=== PATIENT | female | born 1955 | race Caucasian/White ===

== ENCOUNTER 2024-09-08 08:58 | Observation (INO) | payer OTHER ==
[2024-09-08 10:24] LABS: ABSOLUTE IMMATURE GRANULOCYTES 0.11 x10^3/uL (0.0-0.031); BASOPHILS # 0.07 x10^3/uL (0.01-0.08); EOSINOPHIL % 1.3 % (0.7-5.8); EOSINOPHILS # 0.15 x10^3/uL (0.04-0.36); HEMATOCRIT 44.2 % (34.1-44.9); HEMOGLOBIN 15.1 g/dL (11.2-15.7); MCHC 34.2 g/dl (32.2-35.5); MEAN CELL VOLUME 98.4 fl (79.4-94.8); MEAN PLT VOLUME 9.8 fl (9.4-12.3); MONOCYTE # 0.83 x10^3/uL (0.24-0.86); MONOCYTE % 7.2 % (4.7-12.5); PLATELET COUNT 234 x10^3/uL (182-369)
[2024-09-08 10:46] LABS: CHLORIDE 92 mmol/L (98-107); SODIUM 133 mmol/L (136-145)
[2024-09-08 10:48] LABS: POTASSIUM 2.4 mmol/L (3.5-5.1)
[2024-09-08 10:50] LABS: ALBUMIN 3.8 g/dl (3.4-5.0); ANION GAP 13 mmol/L (4-13); BLOOD UREA NITROGEN 11.2 mg/dL (7-18); CALCIUM 8.8 mg/dL (8.5-10.1); CO2 28 mmol/L (21-32); GLUCOSE,RANDOM 138 mg/dL (74-106); MAGNESIUM 1.4 mg/dL (1.8-2.4)
[2024-09-08 10:53] LABS: PHOSPHOROUS 2.8 mg/dL (2.5-4.9); SGOT/AST 68 U/L (15-37); SGPT/ALT 60 U/L (13-61)
[2024-09-08 10:55] LABS: BILIRUBIN,TOTAL 1.9 mg/dL (0.2-1); TOT PROT 7.1 g/dl (6.4-8.2)
[2024-09-08 10:56] LABS: ALK PHOS 155 U/L (45-117)
[2024-09-08] MEDS ORDERED: MAGNESIUM SULFATE IN WATER 2 GM/50 ML IVPB IVPB ONE ×2 (11:44→11:51)
[2024-09-08] MEDS ORDERED: POTASSIUM CHLORIDE ORAL LIQUID 20 MEQ/15 ML ONE (11:51)
[2024-09-08] MEDS: MAGNESIUM SULF 50% (8.12 MEQ/2 ML-1 GM VIAL) IVPB ONE (12:01)
[2024-09-08] MEDS: POTASSIUM CHLORIDE ORAL LIQUID 20 MEQ/15 ML PO ONE ×2 (12:01→21:30)
[2024-09-08] MEDS ORDERED: KCL 10 MEQ IVPB 10 MEQ/100 ML INFUS.BAG IVPB ONE ×2 (12:22→14:59)
[2024-09-08] MEDS: KCL 10 MEQ IVPB 10 MEQ/100 ML INFUS.BAG IVPB SCH ×2 (13:43→21:31)
[2024-09-08] MEDS: POTASSIUM CHLORIDE TABS 20 MEQ TABLET.ER (FP) PO ONE (16:04)
[2024-09-08 18:24] VITALS: BMI 33.4
[2024-09-08 19:46] LABS: CHLORIDE 99 mmol/L (98-107); SODIUM 136 mmol/L (136-145)
[2024-09-08 19:48] LABS: BLOOD UREA NITROGEN 9.7 mg/dL (7-18); CALCIUM 8.5 mg/dL (8.5-10.1); CO2 27 mmol/L (21-32); GLUCOSE,RANDOM 152 mg/dL (74-106)
[2024-09-08 20:02] LABS: ANION GAP 11 mmol/L (4-13); POTASSIUM 2.7 mmol/L (3.5-5.1)
[2024-09-08] MEDS: MAGNESIUM OXIDE 400 MG TABLET (FP) PO ONE (21:31)
[2024-09-09] MEDS: POTASSIUM CHLORIDE TABS 10 MEQ TABLET.ER (FP) PO SCH (00:49)
[2024-09-09] MEDS: MAGNESIUM SULF 50% (8.12 MEQ/2 ML-1 GM VIAL) IVPB ONE (00:50)
[2024-09-09] MEDS: IBUPROFEN 600 MG TABLET (FP) PO ONE (01:15)
[2024-09-09 07:17] LABS: ABSOLUTE IMMATURE GRANULOCYTES 0.06 x10^3/uL (0.0-0.031); BASOPHILS # 0.07 x10^3/uL (0.01-0.08); EOSINOPHIL % 2.1 % (0.7-5.8); EOSINOPHILS # 0.17 x10^3/uL (0.04-0.36); HEMATOCRIT 40.6 % (34.1-44.9); HEMOGLOBIN 13.6 g/dL (11.2-15.7); MCHC 33.5 g/dl (32.2-35.5); MONOCYTE # 0.66 x10^3/uL (0.24-0.86); MONOCYTE % 8.1 % (4.7-12.5); PLATELET COUNT 207 x10^3/uL (182-369); RDW 13.1 % (12.4-16.4)
[2024-09-09 07:32] LABS: POTASSIUM 3.7 mmol/L (3.5-5.1)
[2024-09-09 07:35] LABS: CALCIUM 8.9 mg/dL (8.5-10.1)
[2024-09-09 07:36] LABS: ALBUMIN 3.6 g/dl (3.4-5.0); MAGNESIUM 2.8 mg/dL (1.8-2.4)
[2024-09-09 07:39] LABS: CREATININE 0.8 mg/dL (0.55-1.3); PHOSPHOROUS 1.9 mg/dL (2.5-4.9)
[2024-09-09 07:40] LABS: BILIRUBIN,TOTAL 1.8 mg/dL (0.2-1); TOT PROT 6.4 g/dl (6.4-8.2)
[2024-09-09] MEDS: FEBUXOSTAT 40 MG TAB PO SCH (09:04)
[2024-09-09] MEDS: LEVOTHYROXINE NA 125 MCG TABLET (FP) PO SCH (09:04)
[2024-09-09] MEDS: POTASSIUM CHLORIDE ORAL LIQUID 20 MEQ/15 ML PO ONE (09:04)
[2024-09-09] MEDS: LISINOPRIL 5 MG TABLET PO SCH (09:04)
[2024-09-09] MEDS: ENOXAPARIN NA (PORCINE) 40 MG/0.4 ML DISP.SYRIN SQ SCH (09:05)
[2024-09-09] MEDS ORDERED: PATIENT'S OWN MEDICATION (NON-FORMULARY) (Lisinopril [Zestril] 2.5 MG Tablet) PO SCH (10:00)
[2024-09-09] MEDS ORDERED: LEVOTHYROXINE NA 112 MCG TABLET (FP) PO SCH (10:00)
[2024-09-09] MEDS: POTASSIUM PHOSPHATE 30 MM in DEXTROSE 5%-WATER - 500 ML IVPB ONE (10:57)
[2024-09-09 13:56] VITALS: BP 121/66; PULSE 61; RESP 19; TEMP 98.2
[2024-09-09] MEDS: LOPERAMIDE HCL 2 MG CAPSULE PO ONE (15:43)
== END 2024-09-09 18:02 | disposition home or self-care (01) ==
LOC: JER 08:58 → JERBED 12:23 → UNDOADMIN 12:23 → INTOOBSV 12:23 → UNDOADMOB 12:23 → JERBED 15:33 → J4W 18:15
PROVIDERS: ADMIT Student in an Organized Health Care Education/Training Program; ATTEND Internal Medicine
PROC: 3E033GC Introduction of Other Therapeutic Substance into Peripheral Vein, Percutaneous Approach (ICD-10-PCS; principal; 2024-09-08)
PROC: 3E033GC Introduction of Other Therapeutic Substance into Peripheral Vein, Percutaneous Approach (ICD-10-PCS; 2024-09-08)
DX: I50.30 Unspecified diastolic (congestive) heart failure (principal); R94.31 Abnormal electrocardiogram [ECG] [EKG]; E87.6 Hypokalemia; E03.9 Hypothyroidism, unspecified; E78.5 Hyperlipidemia, unspecified; K58.9 Irritable bowel syndrome, unspecified; E83.42 Hypomagnesemia; R63.30 Feeding difficulties, unspecified; D3A.00 Benign carcinoid tumor of unspecified site; Z90.49 Acquired absence of other specified parts of digestive tract; M10.9 Gout, unspecified; E83.39 Other disorders of phosphorus metabolism
CPT/HCPCS: 0241U-QW; 36415; 71046-TC-FY; 80048; 80053; 82140; 83735; 83880; 84100; 84439; 84443; 84484; 85025; 93005; 93010; 96365; 96367; 96375; 96376; 99285-25; G0378